=== PATIENT | male | born 1940 | race Caucasian/White ===

== ENCOUNTER → 2019-07-25 | Outpatient (CLI) | payer OTHER, MEDICARE, SELFPAY | PROVIDERS: Family Provider Emergency Medicine Emergency Medical Services; Visit Provider Emergency Medicine Emergency Medical Services | DX: R91.8 Other nonspecific abnormal finding of lung field (principal); R05 Cough; Z87.891 Personal history of nicotine dependence; R91.1 Solitary pulmonary nodule; I25.10 Atherosclerotic heart disease of native coronary artery without angina pectoris; I70.0 Atherosclerosis of aorta | CPT/HCPCS: 71260; Q9967 ==

== ENCOUNTER 2019-09-22 07:57 | Day surgery (SDC) | payer OTHER, SELFPAY ==
[2019-09-22] VITALS (10 sets, daily range): BP systolic 123–167; BP diastolic 69–89; PULSE 79–97; RESP 15–22; TEMP 36.2–36.4; O2SAT 94–100; BMI 20.5
[2019-09-22] MEDS: sodium chloride 0.9% 1,000 ML 30 ML IV (08:42)
--- NOTE | 2019-09-22 08:49 | ANES.PREANE2 ---
Pre-Anesthetic Assessment Pre-Anesthetic Assessment: Height/Weight: Height 1.68 m Weight 57.606 kg Temp Pulse Resp BP Pulse Ox 97.1 F L 90 16 158/88 97 09/22/19 08:18 09/22/19 08:18 09/22/19 08:18 09/22/19 08:18 09/22/19 08:18 Preop Diagnosis: Lung malignancy Proposed Procedure: Operation Date: 09/22/19 09:15 Proposed Procedures p Ebus and nagvational bronchoscopy 91014 [id number] R91.1(Not Applicable) - MD anthony Woodall(Not Applicable) - Vale Gomez MD Last intake: Intake Last Liquid Date 09/21/19 Last Liquid Time 21:00 Last Solid Date 09/21/19 Last Solid Time 21:00 Social: Social History: Tobacco Packs per day: 1.5 Pack years: 100+ Exam: Pre-Anes Outpt Exam: alert, oriented x 3 and regular rate & rhythm Additional Exam Findings (including area of procedure): BS = bilaterally, diffuse rhonchi Airway: Submandibular: WNL Cervical ROM: WNL MP: 1 Dentition: False Pulmonary: Pulmonary: COPD Comments: chronic SOB, no longer on home O2 : Comments: BPH Anesthetic Plan: ASA status: 3 Anesthesia: General Meds/Allergies Current Medications: Current Medications Generic Name Dose Route Start Last Admin Trade Name Freq PRN Reason Stop Dose Admin Sodium Chloride 1,000 mls @ 30 ml s/hr 09/22/19 08:15 09/22/19 08:42 Sodium Chloride 0.9% IV 09/23/19 08:14 30 mls/hr .Q24H NIKKI Administration PFSH Anesthesia PFSH: Medical History (Updated 09/14/19 @ 09:51 by Vale Gomez MD) COPD (chronic obstructive pulmonary disease) Social History Smoking and tobacco status: current every day smoker cigarettes Packs smoked per day: 1 Years cigarettes smoked: 70 [ Other cigarette details: Pt on Chantix ] Quit status (tobacco): considering quitting Smoking risk assessment/counseling performed?: Yes Alcohol intake: current Alcohol intake frequency: 0-2 Drinks per Day Lives independently: Yes Household members: none Current occupational status: retired History of recent travel: No Current gender identity: Male Data Anesthesia Cardiac Studies: No Data to Display
--- NOTE | 2019-09-22 09:24 | W.PM.OPSUD ---
Surgery/Procedure H&P Update DATE OF PROCEDURE: September 22, 2019 DATE H&P PERFORMED: 09/14/19 H&P UPDATE INFORMATION: I have reviewed H&P completed within last 30 days and I have examined patient prior to procedure CHANGES TO PREVIOUS DOCUMENTATION: There is no significant change since he was last seen in the office. PREOP DIAGNOSIS: Lung malignancy PLANNED PROCEDURE: Bronchoscopy with inspection of the airway, possible endobronchial biopsies, endobronchial ultrasound-guided transbronchial needle aspiration of lymph nodes, navigational bronchoscopy guided fine-needle aspiration, forcep biopsy and Cytobrush of the right upper lobe and left lower lobe lesions, bronchoalveolar lavage, navigational bronchoscopy guided transthoracic needle biopsy of the left lower lobe lung nodule. All the complications including bleeding and pneumothoraces have been discussed with the patient. The patient would like to go ahead and get the procedure done. Operation Date: 09/22/19 09:15 Proposed Procedures p Ebus and nagvational bronchoscopy [id number] R91.1(Not Applicable) - MD anthony Woodall(Not Applicable) - Vale Gomez MD
--- NOTE | 2019-09-22 09:34 | CT_ITS ---
WS: [id number] CT CHEST FOR NAVIGATIONAL BRONCHOSCOPY TECHNIQUE: Noncontrast CT of the chest with coronal and sagittal reformatted images. CLINICAL INFORMATION: For Navigation Bronch COMPARISON: July 25, 2019 DLP: [id number] scans at [facility] use at least one of these dose optimization techniques: automat ed exposure control; mA and/or kV adjustment per patient size (includes targeted exams where dose is matched to clinical indication); or iterative reconstruction. FINDINGS: Again seen is the right suprahilar and left lower lobe spiculated lesions most consistent with neopla sm. Stable prominent right hilar lymph node. Moderate chronic emphysematous changes. Right upper lobe lesion measures 1.8 cm left lower lobe lesion measures 2.2 CM. Aortic and coronary calcification. Large lobulated left lower pole low-attenuation renal lesion partially visualized with some increased attenuation. This measures 5.4 x 4.4 cm. Recommend further evaluation with contrast-enhanced CT abdo men pelvis or ultrasound. CT/CT chest con [id number] IMPRESSION: 1. Images acquired for navigational bronchoscopy 2. Large lobulated low-attenuation lower pole left renal lesion appears partia lly cystic. Renal cell carcinoma not excluded and recommend further evaluation with CT abdomen pelvis or ultrasound. This is only partially evaluated
[2019-09-22] MEDS: lidocaine 1% INJ 20 mL XX (10:15)
--- NOTE | 2019-09-22 12:05 | SUR.OPER ---
BALLOON REMOVED INTACT.
--- NOTE | 2019-09-22 12:18 | PM.OP ---
Operative Report Date of procedure: September 22, 2019 Pre-op Diagnosis: Lung malignancy Post-op diagnosis: same Brief History: 79-year-old gentleman with right upper lobe and left lower lobe lung nodules coming in for bronchoscopic evaluation for lung malignancy. Procedure: Name of the procedure: Bronchoscopy with inspection of the airway, endobronchial ultrasound-guided transbronchial needle aspiration of lymph nodes, navigational bronchoscopy guided transbronchial biopsies of the right upper lobe, needle aspiration of the right upper lobe, core needle biopsy of the left lower lobe lung mass and control of bleeding. Indication: Right upper lobe and left lower lobe lung nodule concerning for malignancy. Anesthesia: General anesthesia. Local anesthesia: The gerald in the right and left mainstem bronchi were anesthetized with 1% lidocaine, 3 mL. Description of the procedure: The procedure was explained to the patient and the consent was obtained. The patient was brought to the OR. The patient underwent endotracheal intubation for general anesthesia. Following induction of general anesthesia, the bronchoscope was advanced through the ET tube. The lower trachea appeared normal, no endotracheal lesion was seen. The gerald was sharp. The gerald, the right and left mainstem bronchi are anesthetized with 1% lidocaine. In a systematic manner bilateral bronchial tree was then examined. The bronchoscope was advanced into the left mainstem bronchus. There was no erythema,mucus and areas of cobblestoning. The left upper lobe, lingula and left lower lobe bronchi were examined up to the third subsegmental level and no abnormalities were identified. There is no endobronchial lesion, active bleeding or mucous plug. The bronchoscope was then introduced into the right mainstem bronchus. The right upper lobe, right middle lobe and right lower lobe bronchi were examined up to the third subsegmental level and no abnormalities were identified. The endobronchial ultrasound was introduced through the ET tube. Lymphadenopathy in the subcarinal area was noted. Transbronchial needle aspiration was performed from 4R, 7 lymph nodes. The patient was then positioned in a prone position. The bronchoscope was then advanced with the patient being in prone position. Using navigational bronchoscopy transbronchial forcep biopsies were performed from the right upper lobe lung mass. Fine-needle aspiration was also performed from the lung mass. Under the navigational guidance, transthoracic core needle biopsies were performed from the left lower lobe lung nodule. Multiple samples are obtained. Samples: 1. The transbronchial biopsy samples are sent for histopathology. 2. The fine-needle aspiration of the right upper lobe lung mass was sent for cytology. 3. The transbronchial needle aspiration of the lymph nodes are sent for cytology. 4. Transthoracic biopsy was sent for histopathology. Complications: There was no immediate complications. The patient was extubated and brought to the PACU in stable condition. Chest x-ray: Pending
--- NOTE | 2019-09-22 12:28 | XRR_ITS ---
PROCEDURE INFORMATION: Exam: XR Chest, 1 View Exam date and time: 09/22/2019 12:48 PM Age: 79 years old Clinical indication: Condition or disease; Other: Post bronchoscopy TECHNIQUE: Imaging protocol: XR of the chest Views: Frontal portable upright view of the chest. COMPARISON: CR Chest 1 [place] [id number] 10/09/2012 1:23 AM FINDINGS: Lungs: The lungs are clear bilaterally. The pulmonary vasculature is normal. Pleural space: No pleural effusion. No pneumothorax. Heart/Mediastinum: The heart is normal in size and contour. Mediastinum: Stable. Vasculature: Moderate aortic arch atherosclerotic calcification without ectasia. Bones/joints: Diffuse osteopenia. XR/XR chest 1V portable [id number] IMPRESSION: No acute cardiopulmonary abnormality identified.
--- NOTE | 2019-09-22 12:29 | SUR.PHASEI ---
1230 PT AWAKE ORIENTED PT ON RA TRIAL, PT COUGHS UP LARGE AMTS OF THICK CLEAR SPUTUM, SATS 100% ON RA SX WITH YANKER USED WHEN PT COUGHS FOR SPUTUM. WARM BLANKETS X 2 TO PT.
--- NOTE | 2019-09-22 13:00 | SUR.PHASEI ---
1249 PT AWAKE ALERT TO OPS REPORT AT BEDSIDE, PT ALERT TAKING SIPS OF COFFEE, FAMILY IN ROOM.
[2019-10-03 09:52] LABS: PD-L1 (Clone 22C3) by IHC BBPL See Report
== END 2019-09-22 14:15 | disposition home or self-care (01) ==
PROVIDERS: Family Provider Emergency Medicine Emergency Medical Services; PCP Emergency Medicine Emergency Medical Services; Visit Provider Internal Medicine Critical Care Medicine
PROC: BB4BZZZ Ultrasonography of Pleura (ICD-10-PCS; CPT 31625; principal; 2019-09-22 09:15)
PROC: 0BJ08ZZ Inspection of Tracheobronchial Tree, Via Natural or Artificial Opening Endoscopic (ICD-10-PCS; CPT 31622; 2019-09-22 09:15)
DX: C34.90 Malignant neoplasm of unspecified part of unspecified bronchus or lung (principal); J44.9 Chronic obstructive pulmonary disease, unspecified; N40.0 Benign prostatic hyperplasia without lower urinary tract symptoms; F17.210 Nicotine dependence, cigarettes, uncomplicated
CPT/HCPCS: 31625; 31645; 12345; 71045; 71250; 88112; 88173; 88305; 88307; 88342; J2001; J2704; J2710; J3490; J7030

== ENCOUNTER 2019-10-04 13:52 | Outpatient (CLI) | payer OTHER, SELFPAY ==
--- NOTE | 2019-10-06 13:04 | ONC CON_ITS ---
Dr. Stack New Patient Note Patient: Puneet Asif Unit #: [id number]: [id number] Dicatated By: Ezra Stack M.D.Date of Visit: Oct 04, 2019 Onc MED New Patient/Consult Referring Physician: Dr. RITA FULLER M.D. History of Present Illness: Mr. Puneet Asif, is a 79-year-old gentleman with history of COPD underwent CT scan of chest in June 2019, which showed bilateral upper lobe centrilobular and paraseptal emphysema and in addition to that there was a right upper lobe nodule with a central cavity as well as left lower lobe nodule with early cavitary lesion. There was enlarged right hilar lymph node. Patient underwent bronchoscopy on 09/22/2019 and and right upper lobe transbronchial biopsy shows superficial fragments of columnar epithelium with abundant mucin production, highly suspicious for adenocarcinoma, no invasive tumor identified Left lower lobe processes needle biopsy showed no malignancy. Next CT chest was done for navigational bronchoscopy on 09/22/2019 showed right suprahilar size 1.8 cm and left lower lobe spiculated lesions size 2.2 cm and stable prominent right hilar lymph node There was incidental finding of large lobulated left lower pole low-attenuation renal lesion partially visualized with some increased attenuation measuring 5.4 x 4.4 cm Patient was scheduled for CT PET scan but did not go for it. Patient denies any hemoptysis or hematemesis. Patient denies any hematuria patient denies any abdominal pain patient denies any jaundice patient denies any weight loss patient denies any headaches blurred vision double vision patient denies any new bony pains. Patient denies any fever chills patient denies any nausea or vomiting. Past Medical History: Mr. Asif's medical history consists of chronic obstructive pulmonary disease and hypertension. Past Surgical History: Mr. Asif's surgical/procedural history consists of pelvic surgery. Medications: Albuterol Sulfate 2 Puff(s) (of 108 (90 base) mcg/act) Aerosol Powder, Breath Activated Inhalation, Nebulizer Miscellaneous, Spiriva Respimat Aerosol, solution Inhalation, Symbicort Aerosol Inhalation Allergies: Penicillins Social History: Mr. Asif is . He is a daily smoker who has smoked 0.5 packs/day for 70 years. He drinks occasionally. Family History: There is no documented family history. Review Of Symptoms: Review of Systems is not available for this patient. Vital Signs: Performed on Oct 04, 2019 14:56: 3, 19.77, 1.66 sq.m, 67 in, 96 %, 88 /min, 18 /min, 148/76 mm(hg) (HIGH), 98.3 F (LOW), and 126.2 lbs (HIGH). Performance Status: 0 - Fully active, able to carry on all predisease activities without restrictions. (ECOG) Physical Examination: ENMT - No oral exudates, ulcers, masses, thrush or mucositis. Oropharynx clear. Tongue normal, Respiratory - poor air entry, Cardiovascular - Regular rate and rhythm of heart, Abdomen - Non-tender, non-distended,Good bowel sounds. No guarding or rebound tenderness. No pulsatile masses, Extremities - no edema. Lab/Imaging: Most recent lab results are not available for this patient. Impression: Bilateral pulmonary nodules, right upper nodule 1.8 cm, process bronchial biopsy done on 09/22/2019 showed superficial fragments of columnar epithelium with abundant mucin production highly suspicious for adenocarcinoma Left lower lobe lung nodule measuring 2.2 cm status post transthoracic needle biopsy, came back negative for malignancy. CT scan done for navigation bronchoscopy done on 09/22/2019 showed incidental finding of large lobulated left lower pole attenuation renal lesion partially visualized with some increased attenuation my 5.4 x 4.4 cm COPD/emphysema Long-standing history of smoking. Plan: Discussed with patient regarding his disease status. Patient was informed that lung biopsy did not confirm malignancy but right upper lobe lung nodule transbronchial biopsy did show findings highly suspicious for adenocarcinoma whereas left lower lobe nodule transthoracic biopsy showed no malignancy. But main concern is left kidney mass and patient may have renal cancer and possibly lung metastases considering bilateral lung nodules seen on CT scan which would be unusual presentation for primary lung cancer Patient doesn't want another lung biopsy, patient would not consider chemotherapy, patient would not consider radiation therapy either but would see urologist for renal mass, so we will refer him to urologist in [place] for left renal mass evaluation. Patient will return to clinic 1 week after his visit to urology, [facility]. Signed By: Ezra Stack M.D. <<Signature on File>>
--- NOTE | 2019-10-06 13:05 | ONC CON_ITS ---
Dr. Stack New Patient Note Patient: Puneet Asif Unit #: [id number]: 1940 Dicatated By: Ezra Stack M.D.Date of Visit: Oct 04, 2019 Onc MED New Patient/Consult Referring Physician: Dr. RITA FULLER M.D. History of Present Illness: Mr. Puneet Asif, is a 79-year-old gentleman with history of COPD underwent CT scan of chest in June 2019, which showed bilateral upper lobe centrilobular and paraseptal emphysema and in addition to that there was a right upper lobe nodule with a central cavity as well as left lower lobe nodule with early cavitary lesion. There was enlarged right hilar lymph node. Patient underwent bronchoscopy on 09/22/2019 and and right upper lobe transbronchial biopsy shows superficial fragments of columnar epithelium with abundant mucin production, highly suspicious for adenocarcinoma, no invasive tumor identified Left lower lobe processes needle biopsy showed no malignancy. Next CT chest was done for navigational bronchoscopy on 09/22/2019 showed right suprahilar size 1.8 cm and left lower lobe spiculated lesions size 2.2 cm and stable prominent right hilar lymph node There was incidental finding of large lobulated left lower pole low-attenuation renal lesion partially visualized with some increased attenuation measuring 5.4 x 4.4 cm Patient was scheduled for CT PET scan but did not go for it. Patient denies any hemoptysis or hematemesis. Patient denies any hematuria patient denies any abdominal pain patient denies any jaundice patient denies any weight loss patient denies any headaches blurred vision double vision patient denies any new bony pains. Patient denies any fever chills patient denies any nausea or vomiting. Past Medical History: Mr. Asif's medical history consists of chronic obstructive pulmonary disease and hypertension. Past Surgical History: Mr. Asif's surgical/procedural history consists of pelvic surgery. Medications: Albuterol Sulfate 2 Puff(s) (of 108 (90 base) mcg/act) Aerosol Powder, Breath Activated Inhalation, Nebulizer Miscellaneous, Spiriva Respimat Aerosol, solution Inhalation, Symbicort Aerosol Inhalation Allergies: Penicillins Social History: Mr. Asif is . He is a daily smoker who has smoked 0.5 packs/day for 70 years. He drinks occasionally. Family History: There is no documented family history. Review Of Symptoms: Review of Systems is not available for this patient. Vital Signs: Performed on Oct 04, 2019 14:56: 3, 19.77, 1.66 sq.m, 67 in, 96 %, 88 /min, 18 /min, 148/76 mm(hg) (HIGH), 98.3 F (LOW), and 126.2 lbs (HIGH). Performance Status: 0 - Fully active, able to carry on all predisease activities without restrictions. (ECOG) Physical Examination: ENMT - No oral exudates, ulcers, masses, thrush or mucositis. Oropharynx clear. Tongue normal, Respiratory - poor air entry, Cardiovascular - Regular rate and rhythm of heart, Abdomen - Non-tender, non-distended,Good bowel sounds. No guarding or rebound tenderness. No pulsatile masses, Extremities - no edema. Lab/Imaging: Most recent lab results are not available for this patient. Impression: Bilateral pulmonary nodules, right upper nodule 1.8 cm, process bronchial biopsy done on 09/22/2019 showed superficial fragments of columnar epithelium with abundant mucin production highly suspicious for adenocarcinoma Left lower lobe lung nodule measuring 2.2 cm status post transthoracic needle biopsy, came back negative for malignancy. CT scan done for navigation bronchoscopy done on 09/22/2019 showed incidental finding of large lobulated left lower pole attenuation renal lesion partially visualized with some increased attenuation my 5.4 x 4.4 cm COPD/emphysema Long-standing history of smoking. Plan: Discussed with patient regarding his disease status. Patient was informed that lung biopsy did not confirm malignancy but right upper lobe lung nodule proximal bronchial biopsy did show findings highly suspicious for adenocarcinoma whereas left lower lobe nodule transthoracic biopsy showed no malignancy. But main concern is left kidney mass and patient may have renal cancer and possibility lung metastases considering bilateral lung nodules seen on CT scan which would be unusual presentation for primary lung cancer Patient doesn't want another lung biopsy, patient would not consider chemotherapy, patient would not consider radiation therapy but and it to see urologist for renal mass, so we will refer him to urologist in [place] for left renal mass evaluation. Patient will return to clinic 1 week after his visit to urology, [facility]. Signed By: Ezra Stack M.D. <<Signature on File>>
== END 2019-10-04 13:53 | disposition home or self-care (01) ==
PROVIDERS: Family Provider Emergency Medicine Emergency Medical Services; PCP Emergency Medicine Emergency Medical Services; Referring Provider Internal Medicine Critical Care Medicine; Visit Provider Internal Medicine Hematology & Oncology
DX: R91.8 Other nonspecific abnormal finding of lung field (principal); N28.89 Other specified disorders of kidney and ureter; J43.9 Emphysema, unspecified; I10 Essential (primary) hypertension; F17.210 Nicotine dependence, cigarettes, uncomplicated; Z79.51 Long term (current) use of inhaled steroids
CPT/HCPCS: 99203

== ENCOUNTER 2021-02-26 00:22 | Emergency (ER) | payer OTHER, MEDICARE, SELFPAY ==
[2021-02-26 00:26] VITALS: BP 168/76; PULSE 92; RESP 17; TEMP 36.7; O2SAT 100; BMI 21.7
--- NOTE | 2021-02-26 01:22 | XRR_ITS ---
PROCEDURE INFORMATION: Exam: XR Chest Exam date and time: 02/26/2021 1:22 AM Age: 80 years old Clinical indication: Cough and shortness of breath; Patient HX: Cough/sob. ; Additional info: Chest pain, SOB TECHNIQUE: Imaging protocol: XR of the chest. Views: 1 view. COMPARISON: CR XR chest 1V portable [id number] 09/22/2019 12:39 PM FINDINGS: Lungs: There has been interval development of a 9.2 x 8.7 cm cavitary thick-walled mass in the mid right lung extending from the hilum to the lateral chest wall suspicious for an abscess or cavitary tumor. There is also a subtle 3.2 cm rounded patchy density in the left hilar region which may be pneumonia infiltrates or 2nd tumor. Pleural spaces: Unremarkable. No pleural effusion. No pneumothorax. Heart/Mediastinum: Unremarkable. No cardiomegaly. Vasculature: There is atherosclerotic calcification in the aortic arch. Bones/joints: Unremarkable. Soft tissues: Unremarkable. XR/XR chest 1V portable [id number] IMPRESSION: Large right hilar cavitary tumor or abscess and smaller focal pneumonia or tumor in the left hilum.
--- NOTE | 2021-02-26 01:22 | ECG_ITS ---
[facility] ED Test Date: 2021-02-26 Pat Name: Puneet Asif Department: Room: Gender: Male Payroll Benefits Clerk: : 1940 Requested By: Tati Garza Order Number: [id number] Guillermina MD: Griselda Schneider M.D. Measurements Intervals [place] Rate: 97 P: 79 DE: 120 QRS: 85 QRSD: 102 T: 65 QT: 314 QTc: 400 Interpretive Statements SINUS RHYTHM LOW QRS VOLTAGE IN PRECORDIAL LEADS [QRS DEFLECTION < 1.0 mV IN CHEST LEADS] SEPTAL MYOCARDIAL INFARCTION [40+ ms Q WAVE IN V1/V2], OF INDETERMINATE AGE Compared to ECG 02/26/2021 01:39:37 Low QRS voltage now present Myocardial infarct finding still present Electronically Signed On 02-27-2021 9:53:11 CDT by Griselda Schneidre M.D. [email or web address]
--- NOTE | 2021-02-26 01:23 | W.ED.SOB ---
Documented by User: ANJEL Bailey 02/26/21 17:16 HPI - SOB/Dyspnea General: Chief Complaint: General Medical Stated Complaint: cough Time Seen by Provider: 02/26/21 00:43 Source: patient Mode of arrival: ambulatory Limitations: no limitations History of Present Illness: HPI Narrative: Patient is an 80-year-old male who presents to ED today with a complaint of shortness of breath and chest pain. Patient tells me he has felt short of breath over the past 2 to 3 days. He has a known history of COPD and was told he most likely has adenocarcinoma of the lung. He was also told he may have renal cancer with metastasis to the lungs. He never followed up on any of this and refused chemo/radiation. Patient tells me he has home O2 and states he will wear 2L as needed. He states over the past 1 to 2 days he has had to wear this more often. He is complaining of pain to the center of his chest. Patient was here in ED earlier this month but LWBS-his complaint at that time was hemoptysis. MD elicited complaint: shortness of breath Pertinent past history: COPD Onset (ago): day(s) Timing: constant Known history of: COPD Associated symptoms: Reports chest congestion and chest pain; Deny abdominal pain, fever(s), hemoptysis, lightheadedness, nausea, palpitations, syncope or vomiting Treatment prior to arrival: none Related Data: Home oxygen amount: 2 liters (as needed) Review of Systems Const: Denies: fever(s), chills, body aches, fatigue or malaise Card: Reports: chest pain and dyspnea on exertion; Denies: palpitations, irregular heart rhythm, edema, swelling of feet/ankles, lightheadedness, syncope or pre-syncope Resp: Reports: dyspnea, productive cough and chest congestion; Denies: wheezing or hemoptysis GI: Denies: abdominal pain, nausea, vomiting or diarrhea Musc: Denies: neck pain or back pain Skin/Breast: Denies: rash Neuro: Denies: headache(s), numbness in extremities, weakness in extremities or sensory changes [facility] ED PFSH: Medical History (Updated 02/26/21 @ 04:39 by Natan Cali MD) COPD (chronic obstructive pulmonary disease) Surgical History H/O pelvic surgery Social History Smoking and tobacco status: current every day smoker cigarettes Packs smoked per day: 1 Years cigarettes smoked: 70 [ Other cigarette details: Pt on Chantix ] Quit status (tobacco): considering quitting Smoking risk assessment/counseling performed?: Yes Alcohol intake: current Alcohol intake frequency: 0-2 Drinks per Day Lives independently: Yes Household members: none Current occupational status: retired History of recent travel: No Current gender identity: Male Physical Exam Const: COMMON NORMALS: no acute distress, no limitations and alert GENERAL APPEARANCE: frail appearing ORIENTATION/CONSCIOUSNESS: Yes awake, Yes oriented to person, Yes oriented to place and Yes oriented to time HENMT: COMMON NORMALS: normocephalic and atraumatic HEAD & SCALP: normocephalic and atraumatic Resp: COMMON NORMALS: normal respiratory effort AUSCULTATION: rhonchi right upper and wheezes scattered wheezes Cardio: COMMON NORMALS: regular rate and regular rhythm RATE: regular rate RHYTHM: regular rhythm GI: COMMON NORMALS: Normal to inspection, nondistended, normoactive bowel sounds present, Soft to palpation and non-tender PALPATION: Yes Soft to palpation Extremity: COMMON NORMALS: no clubbing, cyanosis or edema, no calf tenderness and no pedal edema Neuro: SENSORIUM/ORIENTATION: Yes alert, Yes oriented to person, Yes oriented to place and Yes oriented to time Skin: COMMON NORMALS: no rashes or lesions noted GENERAL SKIN EXAM: no rashes or lesions noted Course Vital Signs: Vital signs: Vital Signs Temperature 98.2 F 02/26/21 01:58 Pulse Rate 102 H 02/26/21 06:09 Respiratory Rate 19 H 02/26/21 06:09 Blood Pressure 162/54 02/26/21 06:09 Pulse Oximetry 96 02/26/21 06:09 MDM - SOB/Dyspnea MDM Narrative: Medical decision making narrative: Care transferred to Dr. Cali pending remainder of labs/imaging. He has a significant large lesion to R lung on his CXR. He has hx of renal cancer with lung mets that he has opted not to undergo chemo/radiation for. Lab Data: Labs: Lab Results 02/26/21 02/26/21 02/26/21 Range/Units 01:52 01:52 01:52 WBC 10.9 H (4.0-10.0) 10^3/ uL RBC 3.55 L (4.1-5.3) 10^6/u L Hgb 8.7 L (11.7-16.6) g/dL Hct 28.2 L (42.0-52.0) % MCV 79.4 L (80-94) fL MCH 24.5 L (28.0-34.0) pg MCHC 30.9 (30.0-36.0) g/dL RDW 15.1 (12.1-15.1) % Plt Count 419 H (130-400) 10^3/c mm MPV 8.2 (7.4-10.4) fL Neut % (Auto) 78.5 % Lymph % (Auto) 10.3 % [place] % (Auto) 9.9 % Eos % (Auto) 0.5 % Baso % (Auto) 0.3 % Neut # (Auto) 8.58 H (1.8-7.7) 10^3/u L Lymph # (Auto) 1.1 (0.8-4.8) 10^3/u L [place] # (Auto) 1.1 H (0.2-0.9) 10^3/u L Eos # (Auto) 0.1 (0.0-0.8) 10^3/u L Baso # (Auto) 0.0 (0.0-0.1) 10^3/u L Nucleated RBC % (a uto) 0 % Nucleated RBCs # 0.0 /100WBC Sodium 119 L* (136-145) mmol/L Potassium 4.3 (3.5-5.1) mmol/L Chloride 81 L (98-107) mmol/L Carbon Dioxide 30 H (22-29) mmol/L Anion Gap 12.3 (5-19) BUN 10 (8-23) mg/dL Creatinine 0.5 L (0.7-1.2) mg/dL GFR Calculation Not Reportable Glucose 86 (65-115) mg/dL Calculated Osmolal ity 246 L (285-295) mOsm/k g Calcium 8.7 (8.5-10.5) mg/dL Total Bilirubin 0.4 (0.15-1.2) mg/dL AST 17 (0-40) U/L ALT 10 (0-41) U/L Alkaline Phosphata se 124 (40-130) IU/L Troponin T Baselin e 58 H (0-15) ng/L Troponin T 120 Min [place] band (0-15) ng/L Delta Troponin T (0-10) ABS# Total Protein 5.7 L (6.6-8.7) g/dL Albumin 3.1 L (3.5-5.2) g/dL Globulin 2.6 (1.3-4.6) g/dL SARS-CoV-2 Ag (Rap id) (Negative) 02/26/21 02/26/21 Range/Units 01:52 04:34 WBC (4.0-10.0) 10^3/ uL RBC (4.1-5.3) 10^6/u L Hgb (11.7-16.6) g/dL Hct (42.0-52.0) % MCV (80-94) fL MCH (28.0-34.0) pg MCHC (30.0-36.0) g/dL RDW (12.1-15.1) % Plt Count (130-400) 10^3/c mm MPV (7.4-10.4) fL Neut % (Auto) % Lymph % (Auto) % [place] % (Auto) % Eos % (Auto) % Baso % (Auto) % Neut # (Auto) (1.8-7.7) 10^3/u L Lymph # (Auto) (0.8-4.8) 10^3/u L [place] # (Auto) (0.2-0.9) 10^3/u L Eos # (Auto) (0.0-0.8) 10^3/u L Baso # (Auto) (0.0-0.1) 10^3/u L Nucleated RBC % (a uto) % Nucleated RBCs # /100WBC Sodium (136-145) mmol/L Potassium (3.5-5.1) mmol/L Chloride (98-107) mmol/L Carbon Dioxide (22-29) mmol/L Anion Gap (5-19) BUN (8-23) mg/dL Creatinine (0.7-1.2) mg/dL GFR Calculation Glucose (65-115) mg/dL Calculated Osmolal ity (285-295) mOsm/k g Calcium (8.5-10.5) mg/dL Total Bilirubin (0.15-1.2) mg/dL AST (0-40) U/L ALT (0-41) U/L Alkaline Phosphata se (40-130) IU/L Troponin T Baselin e (0-15) ng/L Troponin T 120 Min [place] band 62.82 H (0-15) ng/L Delta Troponin T 4.82 (0-10) ABS# Total Protein (6.6-8.7) g/dL Albumin (3.5-5.2) g/dL Globulin (1.3-4.6) g/dL SARS-CoV-2 Ag (Rap id) Negative (Negative) Discharge Plan Discharge Patient Disposition: Home Clinical Impression: Pain in throat, Renal cancer, Hyponatremia Lung cancer Qualifiers: Laterality: right Lung location: unspecified part of lung Qualified Code(s): C34.91 - Malignant neoplasm of unspecified part of right bronchus or lung Condition: Stable Prescriptions: New hydrocodone-acetaminophen 5-325 mg tablet 1 tab PO Q6H PRN (Reason: pain) Qty: 14 RF: 0 No Action albuterol sulfate [ProAir HFA] 90 mcg/actuation HFA aerosol inhaler 2 puff INHALATION Q6H PRNRF: 0 Symbicort 160-4.5 mcg/actuation HFA aerosol inhaler 2 puff INHALATION BID RF: 0 varenicline 0.5 mg (11)- 1 mg (42) tablets,dose pack 1 each PO PER PKG DIR RF: 0 Spiriva with HandiHaler 18 mcg capsule, w/inhalation device 1 cap INHALATION DAILY Qty: 30 RF: 3 albuterol sulfate 2.5 mg /3 mL (0.083 %) solution for nebulization 2.5 mg INHALATION Q4H PRN (Reason: shortness of breath or wheezing) Qty: 1080 RF: 3 Discharge Orders: Discharge ED (Routine); Ordered 02/26/21 Ordered By: Natan Cali Referrals: Jose Alfredo Grande DO [Primary Care Provider] - Discharge Diet: Advance as tolerated Discharge Activity: Resume usual activity Patient Instructions: Lung Cancer (ED), Hyponatremia (ED), Opioid Safety Coding Level of Care Code ED Supervisor Engraving for Chg Fwd Exam Detailed Documented by User: Natan Cali MD 02/26/21 05:09 HPI - SOB/Dyspnea General: Chief Complaint: General Medical Stated Complaint: cough Time Seen by Provider: 02/26/21 00:43 [facility] ED PFSH: Medical History (Updated 02/26/21 @ 04:39 by Natan Cali MD) COPD (chronic obstructive pulmonary disease) Surgical History H/O pelvic surgery Social History Smoking and tobacco status: current every day smoker cigarettes Packs smoked per day: 1 Years cigarettes smoked: 70 [ Other cigarette details: Pt on Chantix ] Quit status (tobacco): considering quitting Smoking risk assessment/counseling performed?: Yes Alcohol intake: current Alcohol intake frequency: 0-2 Drinks per Day Lives independently: Yes Household members: none Current occupational status: retired History of recent travel: No Current gender identity: Male Course Vital Signs: Vital signs: Vital Signs Temperature 98.2 F 02/26/21 01:58 Pulse Rate 102 H 02/26/21 06:09 Respiratory Rate 19 H 02/26/21 06:09 Blood Pressure 162/54 02/26/21 06:09 Pulse Oximetry 96 02/26/21 06:09 MDM - SOB/Dyspnea MDM Narrative: Medical decision making narrative: Patient presents with renal and lung cancer. Patient's denied treatment in the past. He is also hyponatremic likely from his cancer. He has no altered renal status. I spoke to him at length and he states he still does not want any further treatment. He states that he would like to go home. He does have throat pain we will place him on pain medicine. He is to follow-up with primary care doctor and return if worsening. Lab Data: Labs: Lab Results 02/26/21 02/26/2102/26/21 Range/Units 01:52 01:52 01:52 WBC 10.9 H (4.0-10.0) 10^3/ uL RBC 3.55 L (4.1-5.3) 10^6/u L Hgb 8.7 L (11.7-16.6) g/dL Hct 28.2 L (42.0-52.0) % MCV 79.4 L (80-94) fL MCH 24.5 L (28.0-34.0) pg MCHC 30.9 (30.0-36.0) g/dL RDW 15.1 (12.1-15.1) % Plt Count 419 H (130-400) 10^3/c mm MPV 8.2 (7.4-10.4) fL Neut % (Auto) 78.5 % Lymph % (Auto) 10.3 % [place] % (Auto) 9.9 % Eos % (Auto) 0.5 % Baso % (Auto) 0.3 % Neut # (Auto) 8.58 H (1.8-7.7) 10^3/u L Lymph # (Auto) 1.1 (0.8-4.8) 10^3/u L [place] # (Auto) 1.1 H (0.2-0.9) 10^3/u L Eos # (Auto) 0.1 (0.0-0.8) 10^3/u L Baso # (Auto) 0.0 (0.0-0.1) 10^3/u L Nucleated RBC % (a uto) 0 % Nucleated RBCs # 0.0 /100WBC Sodium 119 L* (136-145) mmol/L Potassium 4.3 (3.5-5.1) mmol/L Chloride 81 L (98-107) mmol/L Carbon Dioxide 30 H (22-29) mmol/L Anion Gap 12.3 (5-19) BUN 10 (8-23) mg/dL Creatinine 0.5 L (0.7-1.2) mg/dL GFR Calculation Not Reportable Glucose 86 (65-115) mg/dL Calculated Osmolal ity 246 L (285-295) mOsm/k g Calcium 8.7 (8.5-10.5) mg/dL Total Bilirubin 0.4 (0.15-1.2) mg/dL AST 17 (0-40) U/L ALT 10 (0-41) U/L Alkaline Phosphata se 124 (40-130) IU/L Troponin T Baselin e 58 H (0-15) ng/L Troponin T 120 Min [place] band (0-15) ng/L Delta Troponin T (0-10) ABS# Total Protein 5.7 L (6.6-8.7) g/dL Albumin 3.1 L (3.5-5.2) g/dL Globulin 2.6 (1.3-4.6) g/dL SARS-CoV-2 Ag (Rap id) (Negative) 02/26/21 02/26/21 Range/Units 01:52 04:34 WBC (4.0-10.0) 10^3/ uL RBC (4.1-5.3) 10^6/u L Hgb (11.7-16.6) g/dL Hct (42.0-52.0) % MCV (80-94) fL MCH (28.0-34.0) pg MCHC (30.0-36.0) g/dL RDW (12.1-15.1) % Plt Count (130-400) 10^3/c mm MPV (7.4-10.4) fL Neut % (Auto) % Lymph % (Auto) % [place] % (Auto) % Eos % (Auto) % Baso % (Auto) % Neut # (Auto) (1.8-7.7) 10^3/u L Lymph # (Auto) (0.8-4.8) 10^3/u L [place] # (Auto) (0.2-0.9) 10^3/u L Eos # (Auto) (0.0-0.8) 10^3/u L Baso # (Auto) (0.0-0.1) 10^3/u L Nucleated RBC % (a uto) % Nucleated RBCs # /100WBC Sodium (136-145) mmol/L Potassium (3.5-5.1) mmol/L Chloride (98-107) mmol/L Carbon Dioxide (22-29) mmol/L Anion Gap (5-19) BUN (8-23) mg/dL Creatinine (0.7-1.2) mg/dL GFR Calculation Glucose (65-115) mg/dL Calculated Osmolal ity (285-295) mOsm/k g Calcium (8.5-10.5) mg/dL Total Bilirubin (0.15-1.2) mg/dL AST (0-40) U/L ALT (0-41) U/L Alkaline Phosphata se (40-130) IU/L Troponin T Baselin e (0-15) ng/L Troponin T 120 Min [place] band 62.82 H (0-15) ng/L Delta Troponin T 4.82 (0-10) ABS# Total Protein (6.6-8.7) g/dL Albumin (3.5-5.2) g/dL Globulin (1.3-4.6) g/dL SARS-CoV-2 Ag (Rap id) Negative (Negative) Imaging Data^: CT Chest: Attestation: I personally reviewed and interpreted this imaging study as follows: Radiologist's impression: [address] [address] [address] Scan Report Signed Patient: Puneet Asif Unit #: [id number] : 1940 Age/Sex: 80 / M ADM Date: 02/26/21 Loc: ER Room/Bed: Attending Dr: Ordering Provider/Ordering MD: Natan Cali MD Date of Service: 02/26/21 Procedure(s): CT angio chest PE prot [id number] Accession Number(s): [id number] Report Number: [id number] PROCEDURE INFORMATION: Exam: CTA Chest With Contrast Exam date and time: 02/26/2021 1:56 AM Age: 80 years old Clinical indication: Cough and shortness of breath; Patient HX: Cough/sob/hypoxia. Prior identification of mass to RT lung and left kidny. Per patient, never sought further treatment. TECHNIQUE: Imaging protocol: Computed tomographic angiography of the chest with contrast. 3D rendering (Not supervised by radiologist): MIP and/or 3D reconstructed images were created by the technologist. Radiation optimization: All CT scans at this facility use at least one of these dose optimization techniques: automated exposure control; mA and/or kV adjustment per patient size (includes targeted exams where dose is matched to clinical indication); or iterative reconstruction. Contrast material: OMNI 350; Contrast volume: 61 ml; Contrast route: INTRAVENOUS (IV); COMPARISON: CT chest wo con [id number] 09/22/2019 9:48 AM RADIATION DOSE METRICS: Total DLP (mGy-cm): 582.35 FINDINGS: Pulmonary arteries: Normal. No pulmonary emboli. Aorta: Unremarkable. No aortic aneurysm. No aortic dissection. Lungs: There is a 2nd lobulated 3.3 cm mass in the posterior left lower lobe compared to 2.3 cm previously. Pleural spaces: Unremarkable. No pneumothorax. No pleural effusion. Heart: Unremarkable. No cardiomegaly. No pericardial effusion. Mediastinal space: There is an 8.6 x 9.1 cm cavitary mass with a fluid level and peripheral infiltrates extending from the right hilum to the anterior pleura in the right middle lobe. This has grown from 2.0 cm nodule seen on previous exam Lymph nodes: Unremarkable. No enlarged lymph nodes. Kidneys and ureters: There is a 3.4 x 4.4 cm solid mass on the posterior left kidney consistent with a renal cell carcinoma. Bones/joints: Unremarkable. No acute fracture. Soft tissues: Unremarkable. CT/CT angio chest PE protcl [id number] IMPRESSION: Markedly enlarged cavitary mass in the right middle lobe and slightly enlarged mass in the left lower lobe consistent with metastatic renal cell carcinoma. Large mass on the left kidney most likely the primary. COMMENTS: Consistent with the [employer]'s Incidental Findings Committee white paper (J Am Esperanza Radiol 2018): Any incidental renal lesion less than 1 cm or classified as too small to characterize, or any incidental cystic renal lesion characterized as simple-appearing, is likely benign. No follow-up imaging is recommended for these lesions per consensus recommendations based on imaging criteria. Radiation Dose CTDIVOL = (mGy): DLP = 582.35 (mGy-cm) Dictated By: Dmitri Wilder MD Signed By: Dmitri Wilder MD Signed Date/Time: 02/26/21415 DD/ 4 Discharge Plan Discharge Patient Disposition: Home Clinical Impression: Pain in throat, Renal cancer, Hyponatremia Lung cancer Qualifiers: Laterality: right Lung location: unspecified part of lung Qualified Code(s): C34.91 - Malignant neoplasm of unspecified part of right bronchus or lung Condition: Stable Prescriptions: New hydrocodone-acetaminophen 5-325 mg tablet 1 tab PO Q6H PRN (Reason: pain) Qty: 14 RF: 0 No Action albuterol sulfate [ProAir HFA] 90 mcg/actuation HFA aerosol inhaler 2 puff INHALATION Q6H PRNRF: 0 Symbicort 160-4.5 mcg/actuation HFA aerosol inhaler 2 puff INHALATION BID RF: 0 varenicline 0.5 mg (11)- 1 mg (42) tablets,dose pack 1 each PO PER PKG DIR RF: 0 Spiriva with HandiHaler 18 mcg capsule, w/inhalation device 1 cap INHALATION DAILY Qty: 30 RF: 3 albuterol sulfate 2.5 mg /3 mL (0.083 %) solution for nebulization 2.5 mg INHALATION Q4H PRN (Reason: shortness of breath or wheezing) Qty: 1080 RF: 3 Discharge Orders: Discharge ED (Routine); Ordered 02/26/21 Ordered By: Natan Cali Referrals: Jose Alfredo Grande, [Primary Care Provider] - Discharge Diet: Advance as tolerated Discharge Activity: Resume usual activity Patient Instructions: Lung Cancer (ED), Hyponatremia (ED), Opioid Safety Coding Level of Care Code ED Supervisor Engraving for Chg Fwd Exam Detailed
--- NOTE | 2021-02-26 01:56 | CTR_ITS ---
PROCEDURE INFORMATION: Exam: CTA Chest With Contrast Exam date and time: 02/26/2021 1:56 AM Age: 80 years old Clinical indication: Cough and shortness of breath; Patient HX: Cough/sob/hypoxia. Prior identification of mass to RT lung and left kidny. Per patient, never sought further treatment. TECHNIQUE: Imaging protocol: Computed tomographic angiography of the chest with contrast. 3D rendering (Not supervised by radiologist): MIP and/or 3D reconstructed images were created by the technologist. Radiation optimization: All CT scans at this facility use at least one of these dose optimization techniques: automated exposure control; mA and/or kV adjustment per patient size (includes targeted exams where dose is matched to clinical indication); or iterative reconstruction. Contrast material: OMNI 350; Contrast volume: 61 ml; Contrast route: INTRAVENOUS (IV); COMPARISON: CT chest [facility] [id number] 09/22/2019 9:48 AM RADIATION DOSE METRICS: Total DLP (mGy-cm): 582.35 FINDINGS: Pulmonary arteries: Normal. No pulmonary emboli. Aorta: Unremarkable. No aortic aneurysm. No aortic dissection. Lungs: There is a 2nd lobulated 3.3 cm mass in the posterior left lower lobe compared to 2.3 cm previously. Pleural spaces: Unremarkable. No pneumothorax. No pleural effusion. Heart: Unremarkable. No cardiomegaly. No pericardial effusion. Mediastinal space: There is an 8.6 x 9.1 cm cavitary mass with a fluid level and peripheral infiltrates extending from the right hilum to the anterior pleura in the right middle lobe. This has grown from 2.0 cm nodule seen on previous exam Lymph nodes: Unremarkable. No enlarged lymph nodes. Kidneys and ureters: There is a 3.4 x 4.4 cm solid mass on the posterior left kidney consistent with a renal cell carcinoma. Bones/joints: Unremarkable. No acute fracture. Soft tissues: Unremarkable. CT/CT angio chest PE protcl [id number] IMPRESSION: Markedly enlarged cavitary mass in the right middle lobe and slightly enlarged mass in the left lower lobe consistent with metastatic renal cell carcinoma. Large mass on the left kidney most likely the primary. COMMENTS: Consistent with the [employer]'s Incidental Findings Committee white paper (J Am Esperanza Radiol 2018): Any incidental renal lesion less than 1 cm or classified as too small to characterize, or any incidental cystic renal lesion characterized as simple-appearing, is likely benign. No follow-up imaging is recommended for these lesions per consensus recommendations based on imaging criteria. Radiation Dose CTDIVOL = (mGy): DLP = 582.35 (mGy-cm)
[2021-02-26 01:58] VITALS: BP 169/73; PULSE 96; RESP 17; TEMP 36.8; O2SAT 89
[2021-02-26 02:05] LABS: Basophils % 0.3 %; Eosinophils # 0.1 10^3/uL (0.0-0.8); Eosinophils % 0.5 %; Hematocrit 28.2 % (42.0-52.0); Hemoglobin 8.7 g/dL (11.7-16.6); Lymphocytes # 1.1 10^3/uL (0.8-4.8); Lymphocytes % 10.3 %; Mean Corpuscular HGB Conc 30.9 g/dL (30.0-36.0); Mean Corpuscular Hemoglobin 24.5 pg (28.0-34.0); Mean Corpuscular Volume 79.4 fL (80-94); Mean Platelet Volume 8.2 fL (7.4-10.4); Monocytes # 1.1 10^3/uL (0.2-0.9); Monocytes % 9.9 %; Neutrophils # 8.58 10^3/uL (1.8-7.7); Neutrophils % 78.5 %; Nucleated Red Blood Cells % 0 %; Platelet Count 419 10^3/cmm (130-400); Red Blood Count 3.55 10^6/uL (4.1-5.3); Red Cell Distribution Width 15.1 % (12.1-15.1); White Blood Count 10.9 10^3/uL (4.0-10.0)
[2021-02-26 02:19] LABS: Troponin(5th) Baseline 58 ng/L (0-15)
[2021-02-26 02:20] LABS: Alanine Aminotransferase 10 U/L (0-41); Albumin Level 3.1 g/dL (3.5-5.2); Alkaline Phosphatase 124 IU/L (40-130); Anion Gap 12.3 (5-19); Aspartate Amino Transferase 17 U/L (0-40); Blood Urea Nitrogen 10 mg/dL (8-23); Calcium 8.7 mg/dL (8.5-10.5); Carbon Dioxide 30 mmol/L (22-29); Chloride 81 mmol/L (98-107); Globulin 2.6 g/dL (1.3-4.6); Glucose 86 mg/dL (65-115); Osmolality Calculated 246 mOsm/kg (285-295); Potassium 4.3 mmol/L (3.5-5.1); Total Bilirubin 0.4 mg/dL (0.15-1.2); Total Protein 5.7 g/dL (6.6-8.7)
[2021-02-26 02:25] LABS: Sodium 119 mmol/L (136-145)
[2021-02-26 02:36] LABS: SARS Covid-2 Antigen Negative (Negative)
[2021-02-26] MEDS: iohexol 350 mg/mL 100 mL Btl IV (02:51)
[2021-02-26 03:00] VITALS: BP 189/76; PULSE 103; RESP 26; O2SAT 99
--- NOTE | 2021-02-26 03:22 | ECG_ITS ---
[facility] ED Test Date: 2021-02-26 Pat Name: Puneet Asif Department: Room: Gender: Male Head Of Talent Management: : 1940 Requested By: Tati Garza Order Number: [id number] Guillermina MD: Griselda Schneider M.D. 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 [id number]
[2021-02-26 04:06] VITALS: BP 178/69; PULSE 89; RESP 19; O2SAT 100
[2021-02-26] MEDS: sodium chloride 0.9% 1,000 ML 999 ML IV (04:47)
[2021-02-26 04:59] LABS: Troponin 5 2HR 62.82 ng/L (0-15); Troponin 5 2HR Delta 4.82 ABS# (0-10)
[2021-02-26 05:00] VITALS: BP 144/75; PULSE 88; RESP 23; O2SAT 99
[2021-02-26 06:09] VITALS: BP 162/54; PULSE 102; RESP 19; O2SAT 96
== END 2021-02-26 06:09 | disposition home or self-care (01) ==
PROVIDERS: Physician Assistant; Emergency Provider Emergency Medicine; PCP Emergency Medicine Emergency Medical Services
DX: C34.91 Malignant neoplasm of unspecified part of right bronchus or lung (principal); C64.9 Malignant neoplasm of unspecified kidney, except renal pelvis; E87.1 Hypo-osmolality and hyponatremia; R07.0 Pain in throat; J44.9 Chronic obstructive pulmonary disease, unspecified; F17.210 Nicotine dependence, cigarettes, uncomplicated; Z20.822 Contact with and (suspected) exposure to COVID-19
CPT/HCPCS: 71045; 71275; 80053; 84484; 85025; 87426; 93005; 96360; 99284; J7030; Q9967